=== PATIENT | male | born 1995 | race Two or more races ===

== ENCOUNTER 2024-02-16 04:30 | Emergency (ER) | payer SELFPAY ==
[2024-02-16] MEDS ORDERED: Sodium Chloride 0.9% 10 ML Syringe FLUSH PRN (04:54)
[2024-02-16] MEDS: Lactated Ringers 1,000 ML IV ONE (05:59)
== END 2024-02-16 05:55 | disposition home or self-care (01) ==
LOC: VM.ED 04:30
DX: F41.9 Anxiety disorder, unspecified (principal); F10.920 Alcohol use, unspecified with intoxication, uncomplicated
CPT/HCPCS: 96360; 99283; J7120